=== PATIENT | female | born 1960 | race Caucasian/White ===

== ENCOUNTER 2018-01-23 15:57 | Emergency (ER) | payer MEDICARE, MEDICAID ==
[2018-01-23 16:26] VITALS: BP 119/76
[2018-01-23 17:05] LABS: BILIRUBIN,URINE SMALL (NEGATIVE); GLUCOSE, URINE NEGATIVE (NEGATIVE); KETONES,URINE NEGATIVE (NEGATIVE); LEUKOCYTE ESTERASE,URINE NEGATIVE (NEGATIVE); NITRITE,URINE NEGATIVE (NEGATIVE); PROTEIN,URINE 100 mg/dL (NEGATIVE); URINE SPECIFIC GRAVITY 1.028; UROBILINOGEN,URINE NEGATIVE mg/dL (<2.0)
[2018-01-23 17:07] LABS: APPEARANCE,URINE TURBID; COLOR,URINE BROWN
[2018-01-23] MEDS ORDERED: KETOROLAC TROMETHAMINE 60 MG/2 ML SDV IM ONE (17:25)
--- NOTE | 2018-01-23 17:29 | ER Document Report ---
ED Medical Screen (RME) - General Chief Complaint: Nausea/Vomiting Stated Complaint: NAUSEA/VOMITING/DIARRHEA Time Seen by Provider: 01/23/18 17:16 Notes: 57-year-old female patient with 3 separate complaints. Sudden onset yesterday of nausea vomiting and brown diarrhea. She is continued to have the nausea vomiting and diarrhea throughout the night. She also noticed blood in the urine with right flank pain and has known kidney stones and is supposed to be referred for lithotripsy. Third complaint is she began breaking out on her right buttock with shingles and has pain going down into her calf consistent with an S1 or S2 distribution. She began taking leftover acyclovir for this. She is requesting a shot of Toradol for her discomfort. I have greeted and performed a rapid initial assessment of this patient. A comprehensive ED assessment and evaluation of the patient, analysis of test results and completion of the medical decision making process will be conducted by additional ED providers. TRAVEL OUTSIDE OF THE [place] IN LAST 30 DAYS: No - Related Data Allergies/Adverse Reactions: chlorpromazine [From Thorazine] Allergy (Verified 01/23/18 16:10) gabapentin [Gabapentin] Allergy (Verified 01/23/18 16:10) haloperidol [From Haldol] Allergy (Verified 01/23/18 16:10) Past Medical History - Social History Chew tobacco use (# tins/day): No Frequency of alcohol use: None Drug Abuse: None - Past Medical History Cardiac Medical History: Reports: Hx Congestive Heart Failure, Hx Hypertension Pulmonary Medical History: Reports: Hx Asthma, Hx Bronchitis, Hx COPD, Hx Pneumonia Renal/ Medical History: Reports: Hx Ovarian Cysts. 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, Reports Hx Fibromyalgia Psychiatric Medical History: Reports: Hx Anxiety, Hx Depression, Hx Post Traumatic Stress Disorder Past Surgical History: Reports: Other - Lipoma - Immunizations Immunizations up to date: Yes Hx Diphtheria, Pertussis, Tetanus Vaccination: Yes - 12/20/10 Physical Exam - Vital signs Vitals: Temp Pulse Resp BP Pulse Ox 99.5 F 90 18 119/76 95 01/23/18 16:24 01/23/18 16:24 01/23/18 16:24 01/23/18 16:24 01/23/18 16:24 Course - Vital Signs Vital signs: Temp Pulse Resp BP Pulse Ox 99.5 F 90 18 119/76 95 01/23/18 16:24 01/23/18 16:24 01/23/18 16:24 01/23/18 16:24 01/23/18 16:24 - Laboratory Laboratory results interpreted by me: 01/23/18 16:02 Urine Protein 100 H Urine Blood MODERATE H Urine Bilirubin SMALL H Doctor's Discharge - Discharge Referrals: ARACELI FULTON MD [Primary Care Provider] - Follow up as needed
[2018-01-23 17:55] LABS: ABSOLUTE EOSINOPHILS # (AUTO) 0.2 10^3/uL (0.0-0.6); ABSOLUTE LYMPHOCYTES (AUTO) 1.8 10^3/uL (0.5-4.7); ABSOLUTE MONOCYTES (AUTO) 0.5 10^3/uL (0.1-1.4); ABSOLUTE NEUT (AUTO) 3.3 10^3/uL (1.7-8.2); BASOPHILS % (AUTO) 0.6 % (0-2); EOSINOPHILS % (AUTO) 2.9 % (0-6); HEMATOCRIT 44.2 % (36.0-47.0); HEMOGLOBIN 15.1 g/dL (12.0-15.5); LYMPHOCYTES % (AUTO) 31.1 % (13-45); MEAN CORPUSCULAR HEMOGLOBIN 30.5 pg (27.0-33.4); MEAN CORPUSCULAR HGB CONC 34.3 g/dL (32.0-36.0); MEAN CORPUSCULAR VOLUME 89 fl (80-97); MONOCYTES % (AUTO) 8.5 % (3-13); PLATELET COUNT 260 10^3/uL (150-450); RED BLOOD COUNT 4.96 10^6/uL (3.72-5.28); RED CELL DISTRIBUTION WIDTH 14.1 % (11.5-14.0); SEGMENTED NEUTROPHILS % (AUTO) 56.9 % (42-78); TOTAL CELLS COUNTED % (AUTO) 100 %; WHITE BLOOD COUNT 5.8 10^3/uL (4.0-10.5)
[2018-01-23 18:56] LABS: ALANINE AMINOTRANSFERASE 25 U/L (9-52); ALBUMIN 4.5 g/dL (3.5-5.0); ALKALINE PHOSPHATASE 127 U/L (38-126); ANION GAP 9 (5-19); ASPARTATE AMINO TRANSFERASE 23 U/L (14-36); BILIRUBIN,DIRECT 0.6 mg/dL (0.0-0.4); BILIRUBIN,TOTAL 1.3 mg/dL (0.2-1.3); BLOOD UREA NITROGEN 19 mg/dL (7-20); CALCIUM 9.2 mg/dL (8.4-10.2); CARBON DIOXIDE 30 mmol/L (22-30); CHLORIDE 100 mmol/L (98-107); GLUCOSE 84 mg/dL (75-110); POTASSIUM 4.2 mmol/L (3.6-5.0); SODIUM 139.3 mmol/L (137-145)
== END 2018-01-23 18:16 | disposition left against medical advice (07) ==
LOC: ER 15:57
DX: R11.2 Nausea with vomiting, unspecified (principal); R19.7 Diarrhea, unspecified; B02.9 Zoster without complications; N20.0 Calculus of kidney; R31.0 Gross hematuria; R10.9 Unspecified abdominal pain; I10 Essential (primary) hypertension; J44.9 Chronic obstructive pulmonary disease, unspecified; Z88.8 Allergy status to other drugs, medicaments and biological substances; Z88.6 Allergy status to analgesic agent; Z87.42 Personal history of other diseases of the female genital tract; Z53.20 Procedure and treatment not carried out because of patient's decision for unspecified reasons
CPT/HCPCS: 99284; 96372; 36415; 85025; 80053; 81001; J1885